=== PATIENT | female | born 1960 | race Caucasian/White ===

== ENCOUNTER 2020-03-13 11:48 | Emergency (ER) | payer MEDICARE, OTHER ==
[~2020-03-13] VITALS: Ht 160 cm; Wt 131.4 kg
[~2020-03-13 11:48] MED LIST: ALBU2.5V8 IH; ALPR0.5T10 PO; AZIT250T PO; CYCL-331 PO; DICL100T PO; DOCU-109 PO; FLUO40CA2 PO; FURO-68 PO; INSU100I17 SQ; IPRA3AMP29 IH; LEVO100T5 PO; LOVA40TA2 PO; METH10TA2 PO; METO-239 PO; OMEP20CA16 PO; PIRO20CA2 PO; PRED1TAB PO; VERA360C2 PO
[2020-03-13] MEDS ORDERED: silver sulfADIAZINE 1% CREAM 50GM JAR. TP ONE (12:00)
[2020-03-13] MEDS ORDERED: HYDROcodone/APAP 5/325MG 1 TAB TABLET PO ONE (12:00)
[2020-03-13] MEDS ORDERED: NEOMY/BACITR/POLYMYXIN OINT PACKET. TP ONE (12:00)
[2020-03-13] MEDS ORDERED: DIPH,PERTUSS(ACELL),TET VAC/PF 0.5 ML SYRINGE. VAX IM ONE (12:30)
[2020-03-13] MEDS ORDERED: OXYMETAZOLINE 0.05% NASAL SPRAY 30ML BOTTLE. NS ONE (12:45)
[2020-03-13 12:52] VITALS: BP 158/100
[2020-03-13] MEDS ORDERED: HYDR-3165 PO (13:08)
[2020-03-13] MEDS ORDERED: SODI104S NS (13:08)
[2020-03-13] MEDS ORDERED: OXYM30SP25 NS (13:08)
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
== END 2020-03-13 13:30 | disposition home or self-care (01) ==
LOC: ER 11:48
DX: T20.10XA Burn of first degree of head, face, and neck, unspecified site, initial encounter (principal); F41.9 Anxiety disorder, unspecified; J44.9 Chronic obstructive pulmonary disease, unspecified; I10 Essential (primary) hypertension; Z90.710 Acquired absence of both cervix and uterus; Z90.89 Acquired absence of other organs; X08.8XXA Exposure to other specified smoke, fire and flames, initial encounter; Y93.89 Activity, other specified; Y92.89 Other specified places as the place of occurrence of the external cause; Y99.8 Other external cause status
CPT/HCPCS: 90471; 90715; 99284